=== PATIENT | male | born 2005 | race Caucasian/White ===

== ENCOUNTER 2024-11-20 05:42 | Inpatient (IN) | payer OTHER ==
[~2024-11-20] VITALS: Ht 170.2 cm; Wt 59.1 kg
[2024-11-20 06:23] LABS: COVID AG,FIA SOURCE NASAL SWAB
[2024-11-20 06:30] LABS: BASOPHILS % (AUTO) 0.3 % (0.0-2.0); EOSINOPHILS % (AUTO) 0.7 % (1.0-6.0); HEMATOCRIT 47.7 % (41-53); HEMOGLOBIN 16.2 g/dL (13.5-17.5); LYMPHOCYTES # (AUTO) 1.3 K/uL (1.0-4.8); LYMPHOCYTES % (AUTO) 11.5 % (22.0-44.0); MEAN CORPUSCULAR HEMOGLOBIN 30.1 pg (26.0-34.0); MEAN CORPUSCULAR HGB CONC 33.8 G/dL (31.0-37.0); MEAN CORPUSCULAR VOLUME 89 fL (80-100); MONOCYTES # (AUTO) 0.7 K/uL (0.1-1.0); MONOCYTES % (AUTO) 6.5 % (2.0-9.0); NEUTROPHILS # (AUTO) 9.3 K/uL (1.8-7.7); PLATELET COUNT (AUTO) 326 K/uL (150-450); RED BLOOD CELL COUNT(AUTO) 5.37 MIL/uL (4.50-5.90); RED CELL DISTRIBUTION WIDTH 13.5 % (11.5-14.5); WHITE BLOOD COUNT (AUTO) 11.4 K/uL (4.5-11.0)
[2024-11-20 06:35] LABS: ALCOHOL, URINE DRUG SCREEN POSITIVE (NEGATIVE); AMPHET/METH SCREEN,URINE POSITIVE (NEGATIVE); BARBITURATE SCREEN, URINE NEGATIVE (NEGATIVE); BENZODIAZEPINES SCREEN,URINE POSITIVE (NEGATIVE); CANNABINOID SCREEN,URINE NEGATIVE (NEGATIVE); COCAINE SCREEN,URINE NEGATIVE (NEGATIVE); METHADONE SCREEN, URINE NEGATIVE (NEGATIVE); OPIATE SCREEN,URINE NEGATIVE (NEGATIVE); PHENCYCLIDINE SCREEN,URINE NEGATIVE (NEGATIVE)
[2024-11-20 06:35] LABS: ANION GAP 2 mmol/L (8-16); CARBON DIOXIDE 32 mmol/L (22-29); CHLORIDE 106 mmol/L (98-107); CREATININE 1.23 mg/dL (0.60-1.30); GLOMERULAR FILTR. RATE CALC > 60 mL/min (>60); GLUCOSE,RANDOM 87 mg/dL (70-110); POTASSIUM 4.1 mmol/L (3.5-5.1); SODIUM SERUM 140 mmol/L (136-145); UREA NITROGEN, BLOOD 13 mg/dL (7-18)
[2024-11-20] MEDS ORDERED: LISD70CA PO (06:35)
[2024-11-20] MEDS ORDERED: SERT-162 PO (06:35)
[2024-11-20] MEDS ORDERED: HALOPERIDOL 5 MG TABLET PO PRN (07:00)
[2024-11-20 07:04] LABS: ALCOHOL, BLOOD (SERUM) 55 mg/dL (0-10)
[2024-11-20 07:08] LABS: SARS-COV2 (COVID) ANTIGEN,FIA Negative (Negative)
[2024-11-20 07:12] LABS: CALCIUM, TOTAL 9.4 mg/dL (8.8-10.5)
[2024-11-20 22:12] VITALS: BP 132/88; PULSE 78; RESP 18; TEMP 95.7; O2SAT 95
[2024-11-20 22:13] VITALS: BP 132/88; PULSE 78; RESP 18; TEMP 95.7; O2SAT 95
[2024-11-20] MEDS: ZOLPIDEM TARTRATE 10 MG TABLET PO PRN (22:23)
[2024-11-21 08:33] VITALS: BP 122/75; PULSE 71; RESP 18; TEMP 98; O2SAT 99
[2024-11-21] MEDS: LORazepam 2 MG TABLET PO PRN (14:06)
[2024-11-21] MEDS ORDERED: LOPERAMIDE HCL 2 MG CAPSULE PO PRN (15:45)
[2024-11-21] MEDS ORDERED: PETROLATUM,WHITE 28 GM JELLY TP PRN (15:45)
[2024-11-21] MEDS ORDERED: BENZOCAINE/MENTHOL [CEPACOL] LOZENGE PO PRN (15:45)
[2024-11-21] MEDS ORDERED: CloNIDine HCL 0.1 MG TABLET PO PRN (15:45)
[2024-11-21] MEDS ORDERED: ONDANSETRON 4 MG TABLET PO PRN (15:45)
[2024-11-21] MEDS ORDERED: OMEPRAZOLE 20 MG CAPSULE PO PRN (15:45)
[2024-11-21] MEDS ORDERED: IBUPROFEN 600 MG TABLET PO PRN (15:45)
[2024-11-21] MEDS ORDERED: ACETAMINOPHEN 325 MG TABLET PO PRN (15:45)
[2024-11-21] MEDS ORDERED: DOCUSATE SODIUM 100 MG CAPSULE PO PRN (15:45)
[2024-11-21] MEDS ORDERED: ALBUTEROL SULFATE HFA 90 MCG/PUFF 8 GM INHALER IH PRN (15:45)
[2024-11-21] MEDS ORDERED: MAGNESIUM HYDROXIDE SUSPENSION 30 ML UDCUP PO PRN (15:45)
[2024-11-21] MEDS ORDERED: BACITRACIN 28 GM OINTMENT TP PRN (15:45)
[2024-11-21] MEDS ORDERED: MAG HYDROX/ALUMINUM HYD/SIMETH ES 30 ML SUSPENSION UDCUP PO PRN (15:45)
[2024-11-21] MEDS: DIVALPROEX SODIUM 500 MG DR TABLET PO SCH (16:39)
[2024-11-21 20:00] VITALS: BP 115/68; PULSE 110; RESP 17; TEMP 98.7; O2SAT 97
[2024-11-22 09:00] VITALS: BP 117/58; PULSE 90; RESP 18; TEMP 98.6; O2SAT 100
[2024-11-22 20:30] VITALS: BP 110/63; PULSE 88; RESP 18; TEMP 97.8; O2SAT 99
[2024-11-23 08:54] VITALS: BP 105/66; PULSE 92; RESP 17; TEMP 98.2; O2SAT 99
[2024-11-23] MEDS ORDERED: DIVA-112 PO (12:58)
== END 2024-11-23 15:55 | disposition home or self-care (01) | DRG 885 ==
LOC: EMS 05:42 → B2S 21:39
PROVIDERS: ADMIT Psychiatry & Neurology Psychiatry; ATTEND Psychiatry & Neurology Psychiatry
DX: F31.9 Bipolar disorder, unspecified (principal); F15.10 Other stimulant abuse, uncomplicated; F90.9 Attention-deficit hyperactivity disorder, unspecified type; F41.9 Anxiety disorder, unspecified; Z20.822 Contact with and (suspected) exposure to COVID-19; G47.00 Insomnia, unspecified; K59.00 Constipation, unspecified; F19.10 Other psychoactive substance abuse, uncomplicated
CPT/HCPCS: 80048; 80307; 85025; 99285; G0480